=== PATIENT | female | born 1960 | race Caucasian/White ===

== ENCOUNTER 2021-10-18 14:28 | Emergency (ER) | payer OTHER ==
[2021-10-18] MEDS ORDERED: Diphtheria,Pertussis(Acell),Tetanus Vaccine 0.5 ML Syringe IM ONE (16:03)
== END 2021-10-18 17:25 | disposition home or self-care (01) ==
LOC: VM.ED 14:28
DX: S00.31XA Abrasion of nose, initial encounter (principal); S00.81XA Abrasion of other part of head, initial encounter; Z23 Encounter for immunization; V22.4XXA Motorcycle driver injured in collision with two- or three-wheeled motor vehicle in traffic accident, initial encounter; Y92.410 Unspecified street and highway as the place of occurrence of the external cause
CPT/HCPCS: 90471; 90715; 99283; 99284